=== PATIENT | female | born 1960 | race American Indian/Alaskan Native ===

== ENCOUNTER 2020-04-09 11:36 | Outpatient (CLI) | payer OTHER ==
--- NOTE | 2020-04-09 14:33 | XRay Report ---
XR shoulder BILAT 2+V INDICATION: RIGHT AND LEFT SHOULDER PAIN. COMPARISON: No relevant prior imaging study available. FINDINGS: No acute skeletal abnormality. No significant soft tissue abnormality. Moderate acromioclavicular degenerative changes are seen bilaterally. IMPRESSION: 1. No acute findings. Signer Name: Madi Cheatham MD Signed: 04/09/2020 2:29 PM Workstation Name: [id number]
== END 2020-04-09 11:37 | disposition home or self-care (01) ==
LOC: SPVIMAG 11:36
PROVIDERS: ATTEND Internal Medicine Hematology & Oncology
DX: C50.911 Malignant neoplasm of unspecified site of right female breast (principal); M19.012 Primary osteoarthritis, left shoulder; M19.011 Primary osteoarthritis, right shoulder; Z79.811 Long term (current) use of aromatase inhibitors